=== PATIENT | male | born 2000 | race Caucasian/White ===

== ENCOUNTER 2024-08-03 12:44 | Emergency (ER) | payer OTHER, SELFPAY ==
[2024-08-03 13:00] VITALS: BP 137/93; PULSE 98; RESP 16; TEMP 36.2; O2SAT 99
--- NOTE | 2024-08-03 13:02 | ED_ITS ---
HPI - URI/Sore Throat General Chief Complaint: Upper Respiratory Infection Stated Complaint: cough,chest/throat/body hurts Time Seen by Provider: 08/03/24 13:02 Source: patient, RN notes reviewed and old records reviewed Mode of arrival: ambulatory Limitations: no limitations History of Present Illness HPI Narrative: Patient presents with complaints cough for 6-8 weeks. He reports the cough has become productive and he has began to notice some wheezing. States that he had fever of 103 last week. He has been intermittently taking [id number] medications with moderate results. Denies any significant medical history. No other concerns or complaints today. He is not in any obvious distress Related Data Allergies Allergy/AdvReac Type Severity Reaction Status Date / Time No Known Allergies Allergy Verified 08/03/24 12:47 Review of Systems Review of Systems: All systems reviewed & are unremarkable except as noted in HPI and below Constitutional: Constitutional: Reports no additional constitutional comp laints ENT: Reports system reviewed and no additional complaints, except as documented Cardiovascular: Cardiovascular: Reports no additional cardiovascular complaints Respiratory: Respiratory: Reports no additional respiratory complaints, Reports chest congestion, Reports cough, Reports excessive phlegm production, Reports pain with cough and Reports wheezing Gastrointestinal: Gastrointestinal: Reports no additional gastrointestinal complaints PMFSH Comments At the time of my signature, I reviewed and agree with the nursing past medic al, surgical, social, and family history. There is no relevant family history pertinent to the patient complaint. Exam Const: General: cooperative, no acute distress, alert and awake Orientation/consciousness: oriented to person, oriented to place and oriented to time HENMT: Head: normal to inspection Mouth: Yes moist mucous membranes Resp: Effort & Inspection: normal respiratory effort and able to speak in complete sentences Auscultation: clear to auscultation bilaterally, crackles on the right at the base, no rales, no rhonchi and wheezes (anterior, faint) expiratory wheezes Cardio: Palpation: normal PMI Rate: regular rate Rhythm: regular rhythm Heart sounds: S1 normal heart sound present and S2 normal heart sound present Neuro: General: oriented to person, oriented to place and oriented to time Cranial nerves: Yes CN's II-XII intact bilaterally Psych: Appearance: grossly normal Thought process: Normal thought process present Insight: Good insight present (Psych) Judgement: Good judgement present (Psych) Course Course Level of Care: Express Care Visit Vital Signs Vital signs: Vital Signs Temperature 97.2 F L 08/03/24 13:00 Pulse Rate 98 08/03/24 13:00 Respiratory Rate 16 08/03/24 13:00 Blood Pressure 137/93 H 08/03/24 13:00 Pulse Oximetry 99 08/03/24 13:00 Oxygen Delivery Room Air 08/03/24 13:00 Temperature 97.2 F L 08/03/24 13:00 Pulse Rate 98 08/03/24 13:00 Respiratory Rate 16 08/03/24 13:00 Blood Pressure 137/93 H 08/03/24 13:00 Pulse Oximetry 99 08/03/24 13:00 Oxygen Delivery Room Air 08/03/24 13:00 Reviewed MDM - URI/Sore Throat MDM Narrative Medical decision making narrative: Patient with no significant medical history complains of cough for 6-8 weeks, fever. Exam consistent with right lower lobe pneumonia, he is nontoxic appearing, stable for discharge home on p.o. antibiotic therapy with steroid burst and bronchodilators. Emergency department precautions discussed. Discharge instructions reviewed with patient, as well as provided in writing per nursing staff. The instructions also include specific and strict return/GO TO THE ER as well as f/u information. All questions have been answered, and the patient deny any further questions with discharge and discharge plan. Some parts of this dictation were generated by voice recognition software and may contain typographical and/or grammatical inaccuracies. Differential Diagnosis Differential diagnosis: Likely upper respiratory infection and viral infection Medical Records Attestation: I reviewed the patient's medical records. Discharge Plan Discharge Clinical Impression: Pneumonia Qualifiers: Pneumonia type: due to unspecified organism Laterality: right Lung location: lower lobe of lung Qualified Code(s): J18.9 - Pneumonia, unspecified organism Patient Disposition: Home, Self-Care Condition: Stable Instructions: Antibiotic Form, Pneumonia (ED) Additional Instructions: Take medications as prescribed. Follow with primary care provider. Emergency department for new or worse symptoms Patient Language: Lithuanian Prescriptions: New azithromycin 250 mg tablet See Rx Instructions .ROUTE .COMPLEX Qty: 6 0RF Rx Instructions: For 250 mg dose pack: take 500 mg today (day 1), then 250 mg for 4 days (days 2-5) prednisone 50 mg tablet 50 mg PO DAILY Qty: 5 0RF albuterol sulfate [Ventolin HFA] 90 mcg/actuation HFA aerosol inhaler 2 puff inhalation QID PRN (Reason: shortness of breath or wheezing) Qty: 8.5 0RF Follow-up/Referrals: PHYSICIAN,INSULATION WORKER APPRENTICE [Primary Care Provider] - 2 Weeks Stand Alone Forms: Work/School Release IP Time of Disposition: 13:11
== END 2024-08-03 13:20 | disposition home or self-care (01) ==
PROVIDERS: Emergency Provider Nurse Practitioner Family
DX: J18.9 Pneumonia, unspecified organism (principal)
CPT/HCPCS: 99203; G0463